=== PATIENT | male | born 1965 | race Caucasian/White ===

== ENCOUNTER → 2020-11-04 | Outpatient (CLI) | payer BC ==
[~2020-11-04] MED LIST: ASPI-496 PO; ASPI81TA45 PO; EZET10TA70 PO; FENO130C12 PO; OMEP40CA42 PO; RANI150C PO; ROSU10TA2 PO; SIMV40TA20 PO
== END | disposition home or self-care (01) ==
LOC: STAR 13:50
PROVIDERS: ATTEND Surgery
DX: Z20.822 Contact with and (suspected) exposure to COVID-19 (principal); K44.9 Diaphragmatic hernia without obstruction or gangrene
CPT/HCPCS: U0003

== ENCOUNTER 2020-11-10 06:01 | Observation (INO) | payer BC ==
[~2020-11-10] VITALS: Ht 167.6 cm; Wt 90.5 kg
[2020-11-10 06:43] VITALS: BP 131/93
[2020-11-10] MEDS ORDERED: MIDAZOLAM 1 MG/ML, 2ML ONE (06:54)
[2020-11-10] MEDS ORDERED: FENTANYL PF 250 MCG/5ML ONE (06:55)
[2020-11-10] MEDS ORDERED: CHLORHEXIDINE 15 ML UDC MM ONE (07:00)
[2020-11-10] MEDS ORDERED: LACTATED RINGERS 1,000 ML IV SCH (07:00)
[2020-11-10] MEDS ORDERED: EPINEPHRINE 1 MG/ML, 1ML ONE (07:07)
[2020-11-10] MEDS ORDERED: BUPIVACAINE/PF 0.5% ONE (07:07)
[2020-11-10] MEDS ORDERED: SUCCINYLCHOLINE 20 MG/ML, 10ML ONE (07:32)
[2020-11-10] MEDS ORDERED: DEXAMETHASONE 4 MG/ML, 1ML ONE (07:32)
[2020-11-10] MEDS ORDERED: ONDANSETRON 2MG/ML, 2ML ONE (07:32)
[2020-11-10] MEDS ORDERED: CEFAZOLIN 1,000 MG ONE (07:32)
[2020-11-10] MEDS ORDERED: SUGAMMADEX 200 MG/2 ML IVPush ONE (07:32)
[2020-11-10] MEDS ORDERED: ROCURONIUM 10 MG/ML,10ML ONE (07:32)
[2020-11-10] MEDS ORDERED: PROPOFOL 10 MG/ML, 20ML ONE (07:32)
[2020-11-10] MEDS ORDERED: PHENYLEPHRINE 10 MG/ML ONE (07:32)
[2020-11-10] MEDS ORDERED: BUPIVACAINE/PF-EPI 0.5% 1:200K INFIL ONE (07:47)
[2020-11-10] MEDS ORDERED: hydrALAzine 20 MG/ML, 1ML IV PRN (08:30)
[2020-11-10] MEDS ORDERED: OXYcodone 5 MG/5 ML ORAL.SOL UDC PO PRN (08:30)
[2020-11-10] MEDS ORDERED: HALOPERIDOL 5 MG/ML IV PRN (08:30)
[2020-11-10] MEDS ORDERED: ONDANSETRON 2MG/ML, 2ML IVPush PRN ×2 (08:30→10:00)
[2020-11-10] MEDS ORDERED: LABETALOL 5MG/ML, 20ML IV PRN (08:30)
[2020-11-10] MEDS ORDERED: METOCLOPRAMIDE 5 MG/ML, 2ML IVPush PRN (08:30)
[2020-11-10] MEDS ORDERED: HYDROmorphone 1 MG/ML, 1ML INJ IVPush PRN (08:30)
[2020-11-10] MEDS ORDERED: DIAZEPAM 5 MG/ML, 2ML IVPush PRN (08:30)
[2020-11-10] MEDS ORDERED: EPHEDRINE 50 MG/ML, 1ML IVPush PRN (08:30)
[2020-11-10] MEDS ORDERED: DIPHENHYDRAMINE 50 MG/ML, 1ML IVPush PRN (08:30)
[2020-11-10] MEDS ORDERED: ACETAMINOPHEN 325 MG TABLET PO PRN (08:30)
[2020-11-10] MEDS ORDERED: KETOROLAC 30 MG/1 ML IVPush PRN (08:30)
[2020-11-10] MEDS ORDERED: MEPERIDINE/PF 25MG/0.5ML IVPush PRN (08:30)
[2020-11-10] MEDS ORDERED: PROMETHAZINE 25 MG/ML, 1ML IVPush PRN (08:30)
[2020-11-10] MEDS ORDERED: METOPROLOL 1 MG/ML, 5ML IV PRN (08:30)
[2020-11-10] MEDS ORDERED: OXYcodone 5 MG/5 ML ORAL.SOL UDC ONE (09:45)
[2020-11-10] MEDS ORDERED: FENTANYL PF 100 MCG/2ML ONE (09:45)
[2020-11-10] MEDS: FENTANYL PF 100 MCG/2ML IV PRN ×2 (09:50→10:00)
[2020-11-10] MEDS: ACETAMINOPHEN 500 MG TABLET PO SCH ×3 (10:00→22:38)
[2020-11-10] MEDS ORDERED: MEPERIDINE/PF 25MG/ML,1ML ONE (10:12)
[2020-11-10] MEDS ORDERED: ACETAMINOPHEN 650 MG/20.3 ML UDC ONE (10:19)
[2020-11-10 11:40] VITALS: BP 150/102
[2020-11-10] MEDS: IBUPROFEN 600 MG TABLET PO SCH ×3 (12:40→22:38)
[2020-11-10 14:46] VITALS: BP 119/78
[2020-11-10] MEDS: OXYcodone 5 MG/5 ML ORAL.SOL UDC PO PRN ×2 (14:52→22:38)
[2020-11-10] MEDS ORDERED: HEPARIN 5,000 UNITS/ML, 1ML SQ SCH (16:00)
[2020-11-10 18:56] VITALS: BP 128/78
[2020-11-10] MEDS ORDERED: EZETIMIBE 10 MG TABLET PO SCH (21:00)
[2020-11-10] MEDS: LACTATED RINGERS 1,000 ML IV SCH (22:39)
[2020-11-11 00:18] VITALS: BP 146/96
[2020-11-11] MEDS: OXYcodone 5 MG/5 ML ORAL.SOL UDC PO PRN ×3 (02:47→11:23)
[2020-11-11 04:04] VITALS: BP 141/91
[2020-11-11] MEDS: IBUPROFEN 600 MG TABLET PO SCH ×2 (04:54→11:23)
[2020-11-11] MEDS: ACETAMINOPHEN 500 MG TABLET PO SCH ×2 (04:54→11:23)
[2020-11-11 07:16] VITALS: BP 135/83
[2020-11-11] MEDS ORDERED: HEPARIN 5,000 UNITS/ML, 1ML SQ SCH (08:00)
[2020-11-11] MEDS ORDERED: ACET-1600 PO (11:24)
[2020-11-11] MEDS: LACTATED RINGERS 1,000 ML IV SCH (11:24)
[2020-11-11] MEDS ORDERED: IBUP-1222 PO (11:24)
[2020-11-11] MEDS ORDERED: OXYC5TAB2 PO (11:24)
[2020-11-11 13:03] VITALS: BP 148/89
== END 2020-11-11 13:13 | disposition home or self-care (01) ==
LOC: OUT 06:01 → ORIP 09:51 → 4NE 11:33 → DCLOUNGE 11-11 13:04
PROVIDERS: ADMIT Surgery; ATTEND Surgery
DX: K44.9 Diaphragmatic hernia without obstruction or gangrene (principal); K21.9 Gastro-esophageal reflux disease without esophagitis; E78.5 Hyperlipidemia, unspecified; Z79.899 Other long term (current) drug therapy
CPT/HCPCS: 43280; 96361; 96372; 96374; C1781; G0378; J0171; J0330; J0690; J1100; J1644; J2175; J2250; J2370; J2405; J2704; J3010; J7120; S0020